=== PATIENT | female | born 1985 | race Two or more races ===

== ENCOUNTER 2017-04-15 00:47 | Emergency (ER) | payer OTHER ==
[~2017-04-15] VITALS: Ht 175.3 cm; Wt 62.1 kg
[2017-04-15 01:05] VITALS: BP 133/82
[2017-04-15] MEDS ORDERED: MAG HYDROX/AL HYDROX/SIMETH 30 ML UDC PO ONE (02:00)
[2017-04-15] MEDS ORDERED: LIDOCAINE VISCOUS 2% UD 15 ML UDC MM ONE (02:00)
[2017-04-15] MEDS ORDERED: LIDOCAINE VISCOUS 2% UD 15 ML UDC ONE (02:01)
[2017-04-15] MEDS ORDERED: MAG HYDROX/AL HYDROX/SIMETH 30 ML UDC ONE (02:02)
== END 2017-04-15 03:02 | disposition home or self-care (01) ==
LOC: ER 00:48
DX: K59.00 Constipation, unspecified (principal); F41.9 Anxiety disorder, unspecified
CPT/HCPCS: 74018; 84703-TC; A4606; Z7610